=== PATIENT | male | born 1965 | race Caucasian/White ===

== ENCOUNTER 2023-10-12 07:00 | Outpatient (CLI) | payer OTHER, SELFPAY ==
--- NOTE | 2023-10-12 07:15 | MR_ITS ---
[address] [address] Phone:?[phone] Fax:?[phone] Referring Physician Information: Steven Shanks M.D. [address] [facility] [address] Phone:?[phone] Fax:?[phone] Patient:Corinne Holcomb D.O.B:?1965 Sex:?Male Phone:?[phone] [facility] MRN:?[id number] Exam Date:?10/12/2023 EXAM: MRI of the LEFT KNEE, without contrast CLINICAL INFORMATION: Male, 57 years old, with left knee pain. INDICATION: Evaluate knee pain. PRIOR SURGERY: None reported. PLAIN FILMS: None available. COMPARISONS: No prior MRIs available. TECHNICAL INFORMATION: Using a 1.5T MR scanner and a localizing surface coil: sagittals: PD, PDFS coronals: PD, STIR axials: PD, T2FS SEDATION: None CONTRAST: None FINDINGS: Knee joint: Effusion: Large left knee effusion, with synovitis. Popliteal cyst: Small Peck cyst, which demonstrates fluid leaking inferiorly. Loose bodies: None. Subcutaneous and extra-articular soft tissues: Mild-moderate subcutaneous soft tissue edema is present throughout the anterior aspects of the knee. Ligaments: ACL: Intact ACL anteromedial and posterolateral bundles, without sprain or tear. PCL: Intact PCL, without acute or chronic injury. MCL: Moderate periligamentous edema is present along the superficial and deep surfaces of the superficial MCL, without MCL tear (coronal STIR series 8 image 19). LCL: Intact LCL, without injury. Posterolateral corner: No posterolateral corner soft tissue injury. Popliteus, biceps femoris, iliotibial band, popliteofibular ligament and lateral gastrocnemius are intact. Posteromedial corner: No posteromedial corner soft tissue injury. Semimembranosus, pes anserine tendons and posterior oblique ligament are without injury, tendinopathy or bursitis. Extensor mechanism: Patellar tendon: Intact, without tendinopathy. Quadriceps tendon: Intact, without tendinopathy. Retinacula: Medial and lateral retinacula are intact. Fat pads: Mild edema-like signal is present throughout the knee fat pads, in keeping with synovitis. Medial compartment: Medial meniscus: Complex partial thickness radial undersurface tearing is present at the posterior horn/body junction over a length of 1.2 cm and involving approximately one third of the meniscal thickness (sagittal PDFS series 6 images 7-10 and coronal STIR series 8 images 21-23). No meniscal extrusion or parameniscal cyst. Medial femoral condyle: No chondromalacia or osteochondral abnormality. Medial tibial plateau: No chondromalacia or osteochondral abnormality. Lateral compartment: Lateral meniscus: No articular surface, meniscosynovial junction or root tear. No displacement, extrusion or parameniscal cyst. Lateral femoral condyle: No chondromalacia or osteochondral abnormality. Lateral tibial plateau: No chondromalacia or osteochondral abnormality. 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 Trochlea: Broad-based grade II chondromalacia of the medial facet and central sulcus, with minimal marginal osteophytosis. Proximal tibiofibular joint: Unremarkable, without evidence of ligament sprain injury, joint effusion or adjacent marrow edema. Bones: No stress/occult fractures or other marrow edema/pathology. IMPRESSION: 1. Complex partial thickness radial undersurface tearing of the posterior horn/body junction of the medial meniscus over a length of 1.2 cm, involving approximately one third of the meniscal thickness. 2. Grade 1 sprain of the superficial MCL, without tear. 3. Minimal osteoarthritis of the patellofemoral compartment, medially. 4. Large knee joint effusion, synovitis and a small, inferiorly leaking Peck cyst. 5. No ACL, PCL, or LCL sprain/tear. 6. No lateral meniscal tear. 7. No osteochondral abnormality of the medial or lateral compartment. BC Electronically signed on 10/12/2023 9:22:00 AM by Robbin Mejias M.D.
== END 2023-10-12 07:01 | disposition home or self-care (01) ==
LOC: MRI 07:00
PROVIDERS: PCP Family Medicine; Visit Provider Family Medicine
DX: M25.562 Pain in left knee (principal); S83.232A Complex tear of medial meniscus, current injury, left knee, initial encounter; M17.12 Unilateral primary osteoarthritis, left knee; M25.462 Effusion, left knee
CPT/HCPCS: 73721

== ENCOUNTER 2023-11-14 06:51 | Day surgery (SDC) | payer OTHER, SELFPAY ==
[2023-11-14] VITALS (13 sets, daily range): BP systolic 94–120; BP diastolic 60–82; PULSE 63–81; RESP 12–16; TEMP 36.2–36.6; O2SAT 94–99; BMI 28.5
[2023-11-14] MEDS: CEFAZOLIN 2 GM INJ IVP (07:04)
[2023-11-14] MEDS: LACTATED RINGERS 1000 ML 1,000 ML 100 ML IV (07:05)
[2023-11-14] MEDS: SODIUM CHLORIDE 0.9 % (FLUSH) 10 ML SYRINGE IVF (07:14)
[2023-11-14] MEDS: BUPIVACAINE 0.25% 30 ML INJECTION (09:17)
--- NOTE | 2023-11-14 09:18 | P.ORPRC_ITS ---
Procedure Note Date of procedure: 11/14/23 Procedure: PREOPERATIVE DIAGNOSIS: Left knee medial meniscus tear POSTOPERATIVE DIAGNOSIS: Left knee medial meniscus tear NAME OF OPERATION: Left knee arthroscopic partial medial meniscectomy SURGEON: Asad Lucio MD GRADES 7 8 TUTOR: Adriana Lynch PA-C ANESTHESIA: Spinal ESTIMATED BLOOD LOSS: 0 mL COMPLICATIONS: None SPECIMENS: None DRAINS: None PREOPERATIVE ANTIBIOTICS: Ancef 2 gram INDICATIONS: The patient is a 57-year-old with a history of left knee medial pain. MRI scan is consistent with a medial meniscus tear. Despite appropriate nonoperative management, including activity modification, antiinflammatories, [id number] pain medication, bracing, physical therapy, and injections they continue to have pain and disability. Operative intervention was offered. The risks, benefits and expected outcomes were discussed in detail. These included but were not limited to: Infection, bleeding, injury to blood vessel or nerve, venous thromboembolism. All questions were answered to their satisfaction. PROCEDURE: Spinal anesthesia was administered. The patient was placed supine on the operating room table. The left lower extremity was prepped and draped in the usual sterile fashion. The limb was exsanguinated with the Sal bandage. The pneumatic tourniquet was inflated to 300 mmHg. A standard anterolateral portal was established. The arthroscope was introduced. The working portal was established anteromedially. Diagnostic arthroscopy was performed with findings as follows: The suprapatellar pouch is normal. Articular surface on the patella shows diffuse grade 3 change centrally. Articular surface on the trochlea is normal. The medial gutter is normal. The medial compartment shows diffuse grade 3 change on the medial femoral condyle, grade 2 change on the medial tibial plateau. The medial meniscus has a complex degenerative tear of the posterior horn. There was a small radial component that does not go to the capsule. There is undersurface horizontal cleavage tearing. The leading edge of the posterior horn is flipped posteriorly. However, the root is intact. The notch shows the ACL to be intact. The lateral compartment shows normal articular cartilage on the lateral femoral condyle and lateral tibial plateau. The lateral meniscus is normal. The lateral gutter is normal. The posterior horn of the medial meniscus was debrided to a stable base using a combination of baskets and maura through both portals. Unstable chondral flaps on the medial femoral condyle and patella were debrided with the shaver through both portals, taken to a stable base. Arthroscopic instruments were removed, the portal sites were Steri-Stripped closed, the knee was infiltrated with 30 mL of 0.25% Marcaine without epinephrine. A dry dressing was applied, the tourniquet was released. Sponge and needle counts were correct x 2. The patient tolerated the procedure well. There were no apparent complications. They were carefully transferred to the hospital bed and taken to the postanesthesia care unit in satisfactory condition. PLAN: The patient will be discharged to home. They may weightbear as tolerates. Range of motion will be unrestricted. They will follow up in the office next week for a wound check.
--- NOTE | 2023-11-14 09:31 | W.ANESCHARGE ---
Anesthesia Charges Start Date/Time Anesthesia Start Date: 11/14/23 Anesthesia Start Time: 08:35 Stop Date/Time Anesthesia Stop Date: 11/14/23 Anesthesia Stop Time: 09:29
== END 2023-11-14 11:29 | disposition home or self-care (01) ==
PROVIDERS: PCP Family Medicine; Visit Provider Orthopaedic Surgery
PROC: (CPT 29870; principal; 2023-11-14 09:15)
DX: M23.222 Derangement of posterior horn of medial meniscus due to old tear or injury, left knee (principal)
CPT/HCPCS: 29881; 01400; J0665; J0690; J1100; J1885; J2250; J2405; J2704; J3010; J7120